=== PATIENT | female | born 1950 | race Caucasian/White ===

== ENCOUNTER 2017-01-05 16:05 | Outpatient (CLI) | payer OTHER ==
--- NOTE | 2017-01-05 16:55 | DIAGNOSTIC IMAGING REPORT ---
PROCEDURE: XR ABDOMEN 1 VIEW INDICATION: LEFT UPPER QUADRANT PAIN TECHNIQUE: AP supine and upright views. COMPARISON: None. FINDINGS: Large amount of stool seen throughout the colon. There is severe degenerative osteoarthritis involving the left hip. There is moderate osteoarthritis involving the right hip. IMPRESSION: 1. Obstipation
== END 2017-01-05 23:00 ==
LOC: LAB SRH 16:05
DX: R10.12 Left upper quadrant pain (principal); K59.00 Constipation, unspecified
CPT/HCPCS: 90074; 90100; 92235; 95059